=== PATIENT | male | born 1965 | race American Indian/Alaskan Native ===

== ENCOUNTER 2019-01-07 14:31 | Emergency (ER) | payer OTHER ==
[2019-01-07 14:41] VITALS: BP 172/99
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
== END 2019-01-07 16:37 | disposition home or self-care (01) ==
LOC: ED 14:31
DX: M54.2 Cervicalgia (principal); M25.511 Pain in right shoulder; M54.5 Low back pain; V49.49XA Driver injured in collision with other motor vehicles in traffic accident, initial encounter; Y93.89 Activity, other specified; Y92.89 Other specified places as the place of occurrence of the external cause; Y99.8 Other external cause status
CPT/HCPCS: 72040; 72100